=== PATIENT | male | born 1955 | race Caucasian/White ===

== ENCOUNTER 2017-09-11 07:15 | Outpatient (CLI) | payer OTHER ==
[2017-09-11 11:06] LABS: BASOPHILS # (AUTO) 0.1 10^3/uL (0.0-0.1); EOSINOPHILS # (AUTO) 0.8 10^3/uL (0.0-0.7); HGB - HEMOGLOBIN 15.3 g/dL (14.0-18.0); LYMPHOCYTES # (AUTO) 2.5 10^3/uL (1.5-3.5); LYMPHOCYTES % (AUTO) 29.9 %; MEAN CORPUSCULAR HEMOGLOBIN 30.3 pg (27.0-31.0); MEAN CORPUSCULAR HGB CONC 34.3 g/dL (32.0-36.0); MEAN CORPUSCULAR VOLUME 88.4 fL (80.0-94.0); MEAN PLATELET VOLUME 6.9 fL (7.4-11.4); MONOCYTES # (AUTO) 0.7 10^3/uL (0.0-1.0); MONOCYTES % (AUTO) 8.9 %; NEUTROPHILS # (AUTO) 4.1 10^3/uL (1.5-6.6); NEUTROPHILS % (AUTO) 50.2 %; PLT - PLATELET COUNT 333 10^3/uL (130-450); RED BLOOD COUNT 5.05 10^6/uL (4.70-6.10); RED CELL DISTRIBUTION WIDTH 13.4 % (12.0-15.0); WHITE BLOOD COUNT 8.2 x10^3/uL (4.8-10.8)
[2017-09-11 12:29] LABS: ALBUMIN 4.6 g/dL (3.2-5.5); ALBUMIN/GLOBULIN RATIO 1.4 (1.0-2.2); ALKALINE PHOSPHATASE 37 IU/L (42-121); ALT ALANINE AMINOTRANSFERASE 25 IU/L (10-60); AST ASPARTATE AMINOTRANSFERASE 21 IU/L (10-42); BILIRUBIN,TOTAL 0.6 mg/dL (0.2-1.0); BUN - BLOOD UREA NITROGEN 12 mg/dL (6-20); CALCIUM 9.2 mg/dL (8.5-10.3); CARBON DIOXIDE - CO2 28 mmol/L (21-32); CHLORIDE 99 mmol/L (101-111); CHOL/HDL RATIO 5.2 (<5.0); CHOLESTEROL 187 mg/dL; CREATININE 0.6 mg/dL (0.6-1.2); GFR - MDRD 136 (>89); GLUCOSE 104 mg/dL (70-100); HDL CHOLESTEROL 36 mg/dL; LDL CHOLESTEROL,CALCULATED 115 mg/dL; LDL/HDL RATIO 3.2 (<3.6); SODIUM 135 mmol/L (135-145); TOTAL PROTEIN 7.9 g/dL (6.7-8.2); VLDL CHOLESTEROL 36 mg/dL
== END 2017-09-11 07:16 | disposition home or self-care (01) ==
LOC: LAB.F 07:15
PROVIDERS: ATTEND Nurse Practitioner Family
DX: I10 Essential (primary) hypertension (principal); Z13.220 Encounter for screening for lipoid disorders
CPT/HCPCS: 36415; 80053; 80061; 83721; 84443; 85025

== ENCOUNTER 2018-06-10 16:24 | Outpatient (CLI) | payer MEDICARE, OTHER ==
--- NOTE | 2018-06-11 08:17 | XRAY Report ---
Reason: PNEUMONIA Procedure Date: 06/10/2018 Accession Number: [id number] / [id number] Procedure: XR - Chest 2 View X-Ray CPT Code: 82676 FULL RESULT: EXAM: CHEST RADIOGRAPHY EXAM DATE: 06/10/2018 04:51 PM. CLINICAL HISTORY: PNEUMONIA follow-up. COMPARISON: 03/29/2016 and 08/29/2015 TECHNIQUE: 2 views. FINDINGS: Lungs/Pleura: No focal opacities evident. No pleural effusion. No pneumothorax. Normal volumes. Mediastinum: Heart and mediastinal contours are unremarkable. Other: Degenerative change in the spine. IMPRESSION: Negative 2-view chest radiography for acute findings or significant interval change since 2015. RADIA
== END 2018-06-10 16:25 | disposition home or self-care (01) ==
LOC: DI 16:24
PROVIDERS: ATTEND Nurse Practitioner Family
DX: J18.9 Pneumonia, unspecified organism (principal)
CPT/HCPCS: 71046

== ENCOUNTER 2018-09-19 07:47 | Outpatient (CLI) | payer MEDICARE, OTHER ==
[2018-09-19 10:35] LABS: BASOPHILS % (AUTO) 2.2 %; EOSINOPHILS % (AUTO) 20.9 %; HGB - HEMOGLOBIN 15.3 g/dL (14.0-18.0); LYMPHOCYTES % (AUTO) 30.6 %; MEAN CORPUSCULAR HEMOGLOBIN 30.1 pg (27.0-31.0); MEAN CORPUSCULAR HGB CONC 33.9 g/dL (32.0-36.0); MEAN CORPUSCULAR VOLUME 88.7 fL (80.0-94.0); MEAN PLATELET VOLUME 7.2 fL (7.4-11.4); MONOCYTES % (AUTO) 7.9 %; NEUTROPHILS % (AUTO) 38.4 %; PLT - PLATELET COUNT 299 10^3/uL (130-450); RED BLOOD COUNT 5.09 10^6/uL (4.70-6.10); RED CELL DISTRIBUTION WIDTH 13.8 % (12.0-15.0); WHITE BLOOD COUNT 7.2 x10^3/uL (4.8-10.8)
[2018-09-19 10:42] LABS: ABNORMAL LYMPHS % (MANUAL) 0 %; BAND NEUTROPHILS % (MANUAL) 0 %
[2018-09-19 10:43] LABS: CALCIUM 9.1 mg/dL (8.5-10.3); CREATININE 0.8 mg/dL (0.6-1.2)
[2018-09-19 10:59] LABS: INR 1.1 (0.8-1.2); PT - PROTHROMBIN TIME 12.2 secs (9.9-12.6)
[2018-09-19 11:07] LABS: PARTIAL THROMBOPLASTIN TIME 31.8 secs (24.9-33.3)
[2018-09-19 11:21] LABS: BASOPHILS # (MANUAL) 0.2 10^3/uL (0-0.1); BASOPHILS % (MANUAL) 3 %; EOSINOPHILS # (MANUAL) 2.2 10^3/uL (0-0.7); LYMPHOCYTES # (MANUAL) 2.2 10^3/uL (1.5-3.5); LYMPHOCYTES % (MANUAL) 21 %; MONOCYTES # (MANUAL) 0.4 10^3/uL (0.0-1.0); NEUTROPHILS # (MANUAL) 2.2 10^3/uL (1.5-6.6); NEUTROPHILS % (MANUAL) 31 %
[2018-09-19 11:22] LABS: DIFFERENTIAL COMMENT MANUAL DIFFERENTIAL
== END 2018-09-19 07:48 | disposition home or self-care (01) ==
LOC: LAB.F 07:47
PROVIDERS: ATTEND Otolaryngology
DX: J32.4 Chronic pansinusitis (principal)
CPT/HCPCS: 36415; 80048; 85025; 85610; 85730

== ENCOUNTER 2020-03-15 08:33 | Outpatient (CLI) | payer MEDICARE ==
[2020-03-15 15:28] LABS: CALCIUM 8.9 mg/dL (8.5-10.3); CREATININE 0.8 mg/dL (0.6-1.2)
== END 2020-03-15 08:34 | disposition home or self-care (01) ==
LOC: LAB.S 08:33
PROVIDERS: ATTEND Internal Medicine
DX: I10 Essential (primary) hypertension (principal)
CPT/HCPCS: 36415; 80048

== ENCOUNTER 2021-08-31 09:40 | Outpatient (CLI) | payer MEDICARE, MEDICAID ==
[2021-08-31 10:20] LABS: BASOPHILS # (AUTO) 0.1 10^3/uL (0.0-0.1); BASOPHILS % (AUTO) 0.9 %; EOSINOPHILS # (AUTO) 0.8 10^3/uL (0.0-0.7); EOSINOPHILS % (AUTO) 11.8 %; HCT - HEMATOCRIT 45.6 % (42.0-52.0); HGB - HEMOGLOBIN 15.4 g/dL (14.0-18.0); LYMPHOCYTES # (AUTO) 2.5 10^3/uL (1.5-3.5); LYMPHOCYTES % (AUTO) 35.8 %; MEAN CORPUSCULAR HEMOGLOBIN 29.6 pg (27.0-31.0); MEAN CORPUSCULAR HGB CONC 33.8 g/dL (32.0-36.0); MEAN CORPUSCULAR VOLUME 87.7 fL (80.0-94.0); MEAN PLATELET VOLUME 8.5 fL (7.4-11.4); MONOCYTES # (AUTO) 0.7 10^3/uL (0.0-1.0); MONOCYTES % (AUTO) 9.3 %; NEUTROPHILS # (AUTO) 2.9 10^3/uL (1.5-6.6); NEUTROPHILS % (AUTO) 41.9 %; PLT - PLATELET COUNT 303 10^3/uL (130-450); RED CELL DISTRIBUTION WIDTH 13.9 % (12.0-15.0)
[2021-08-31 10:31] LABS: ALBUMIN/GLOBULIN RATIO 1.2 (1.0-2.2); ALKALINE PHOSPHATASE 41 IU/L (42-121); ALT ALANINE AMINOTRANSFERASE 33 IU/L (10-60); AST ASPARTATE AMINOTRANSFERASE 25 IU/L (10-42); BILIRUBIN,TOTAL 0.8 mg/dL (0.2-1.0); BUN - BLOOD UREA NITROGEN 15 mg/dL (6-20); CALCIUM 9.1 mg/dL (8.5-10.3); CARBON DIOXIDE - CO2 26 mmol/L (21-32); CHLORIDE 100 mmol/L (101-111); CHOL/HDL RATIO 4.7 (<5.0); CHOLESTEROL 185 mg/dL; CREATININE 0.7 mg/dL (0.6-1.2); GFR - MDRD 112 (>89); GLUCOSE 122 mg/dL (70-100); HDL CHOLESTEROL 39 mg/dL; LDL CHOLESTEROL,CALCULATED 119 mg/dL; LDL/HDL RATIO 3.1 (<3.6); POTASSIUM 4.3 mmol/L (3.5-5.0); SODIUM 134 mmol/L (135-145); TOTAL PROTEIN 7.3 g/dL (6.7-8.2); TRIGLYCERIDES 136 mg/dL; VLDL CHOLESTEROL 27 mg/dL
--- NOTE | 2021-08-31 17:04 | XRAY Report ---
PROCEDURE: Knee 4 View RT INDICATIONS: RT KNEE PX TECHNIQUE: 4 views of the right knee(s) were acquired. COMPARISON: None. FINDINGS: Bones: No fractures or dislocations. Moderate to severe tricompartmental osteoarthritis is seen most prominent in medial femoral tibial compartment. No suspicious bony lesions. Soft tissues: Moderate suprapatellar joint effusion is seen. No suspicious soft tissue calcification s. IMPRESSION: Moderate to severe tricompartmental osteoarthritis most prominent in medial femoral tibi al compartment. No acute fracture or dislocation. Moderate joint effusion. Reviewed by: Niraj Tucker MD on 08/31/2021 5:03 PM PST Approved by: Niraj Tucker MD on 08/31/2021 5:03 PM PST Station ID: [id number]
== END 2021-08-31 09:41 | disposition home or self-care (01) ==
LOC: DI 09:40 → LAB 09:41
PROVIDERS: ATTEND Internal Medicine
DX: I10 Essential (primary) hypertension (principal); M17.11 Unilateral primary osteoarthritis, right knee; M25.461 Effusion, right knee
CPT/HCPCS: 36415; 80053; 80061; 83036; 83721; 85025

== ENCOUNTER 2022-12-09 10:33 | Emergency (ER) | payer MEDICARE, MEDICAID ==
--- NOTE | 2022-12-09 11:47 | ED Physician Documentation ---
PD HPI MALE - Stated complaint Stated Complaint: MALE - Chief complaint Chief Complaint: General - History obtained from History obtained from: Patient - History of Present Illness Timing - onset: How many weeks ago (3) Timing - duration: Weeks (3) Timing - details: Gradual onset, Still present, Waxing and waning Associated symptoms: Other (has had pain right inguinal area intermittent for 3 weeks, worse with use/sactivity such as walking up/down steps, and carrying a load/objects. No change with voiding/stooling. He thiks he feels a lump in area periodically when hurting.) PD HPI MALE CONTRIB FACTORS: Not sexually active Similar symptoms before: Has not had sx before Recently seen: Not recently seen Review of Systems Constitutional: denies: Fever, Chills Cardiac: denies: Chest pain / pressure Respiratory: denies: Dyspnea, Cough GI: denies: Abdominal Pain : denies: Dysuria, Frequency, Discharge, Testicular pain Skin: denies: Rash, Lesions PD PAST MEDICAL HISTORY - Past Medical History Cardiovascular: Hypertension Respiratory: Asthma Endocrine/Autoimmune: None GI: None : None HEENT: None Psych: None Musculoskeletal: None Derm: None - Past Surgical History Past Surgical History: No Ortho: Other - Present Medications Home Medications: Ambulatory Orders Medication Instructions Recorded Confirmed Amlodipine Besylate 1 tab ORAL DAILY 07/26/15 07/26/15 Aspirin [Adult Low Dose Aspirin EC] 1 tab ORAL DAILY 07/26/15 07/26/15 Beclomethasone 80 Mcg [Qvar 80] 1 inh INH BID 07/26/15 07/26/15 Chlorthalidone 0.5 tab ORAL DAILY 07/26/15 07/26/15 Albuterol Sulfate 08/29/15 Loratadine [Claritin] 08/29/15 hydroCHLOROthiazide 25 mg PO DAILY 03/29/16 03/29/16 [Hydrochlorothiazide] HYDROcod/ACETAM 5/325 [[place] 5/325] 1 ea PO Q6H PRN #14 tablet 12/09/22 Meloxicam [Mobic] 7.5 mg PO BID 10 Days #20 tablet 12/09/22 - Allergies Allergies/Adverse Reactions: Allergies Allergy/AdvReac Type Severity Reaction Status Date / Time No Known Drug Allergies Allergy Verified 12/09/22 10:47 - Social History Does the pt smoke?: No Smoking Status: Never smoker - POLST Patient has POLST: No PD ED PE NORMAL - Vitals Vital signs reviewed: Yes - General General: Alert and oriented X 3, No acute distress, Well developed/nourished - Abdomen Abdomen: Normal bowel sounds, Soft, Non distended, No organomegaly, Other (he has some [id number] in right femoral crease at inguinal canal area, but not tender medial aspect such as canal outlet. No tender at scrotum. No obvious hernia scrotal /inguinal medial. Mild pain with hip flexion against resistance but not much. No adenopathy. Abdomen itself it not tender. ) Results - Vitals Vitals: Vital Signs - 24 hr 12/09/22 12/09/22 10:42 12:30 Temperature 36.4 C L 36.5 C Heart Rate 79 80 Respiratory 16 16 Rate Blood Pressure 123/69 122/72 O2 Saturation 99 100 Oxygen O2 Source Room air PD Medical Decision Making - ED course Complexity details: reviewed results (kdiscussion with patient of treating potentil inguinal ligament/canal strain or psoas strain versus testing here with CT/labs. He defers testing for now. ), considered differential (right inguinal pain with activity for 3 weeks. No meds taken. Works as aircraft electrician. I do not feel an obvious hernia on exam with abd tightening. Consider inguinal canal strain, though. Also consider flexor muscle strain (psoas). I do not get sense of intrabdominal process per se. ), d/w patient Departure - Departure Disposition: 01 Home, Self Care Clinical Impression: Right inguinal pain Condition: Stable Record reviewed to determine appropriate education?: Yes Instructions: ED Strain Groin Follow-Up: Maryann Avila ARNP [Primary Care Provider] - Prescriptions: Meloxicam [Mobic] 7.5 mg PO BID 10 Days #20 tablet HYDROcod/ACETAM 5/325 [[place] 5/325] 1 ea PO Q6H PRN #14 tablet PRN Reason: Pain Comments: The character of this sounds likely to be a strain of the inguinal canal l igaments or possibly the hip flexor muscles such as the psoas (muscle strain). However the location of it is little bit more into the lower abdomen/pelvis area. We can treat it with anti-inflammatories and add other pain medicine short-term along with modified activity over the next several days to week. If it gets better then no further treatment necessarily needed. If the pain continues or becomes a bigger area or if you develop other symptoms such as general belly pain, diarrhea or loose stools, nausea, fever or any other different symptoms, then return to the ER for further evaluation such as CT scan or labs. At this point it can be reasonable to treat with anti-inflammatories and pain medicine and see if it improves. I sent new prescriptions to [facility] in [place]. Try to minimize lifting bending prolonged walking and standing etc. over the next several days to week. I am prescribing a short course of narcotic pain medication for you. These are potentially dangerous and addictive medications that should be used carefully. These medications may constipate you. Take an [id number] stool softener such as docusate twice daily with plenty of water while taking these medications. If you go 24 hours without a bowel movement, take [id number] MiraLAX, per package instructions. Do not drink or drive while taking these medications. If you received narcotic or sedating medications while in the emergency department do not drive for 24 hours. Store this medication in a safe, secure place and out of reach of children. It is a violation of federal law to give or sell this medication to another person or to use in a manner other than prescribed. The ED will not refill narcotic prescriptions, including prescriptions lost or stolen. You can dispose of unwanted medications at the [facility]'s office or at several pharmacies such as [facility]. Discharge Date/Time: 12/09/22 12:30
[2022-12-09 12:32] VITALS: BP 122/72
== END 2022-12-09 12:30 | disposition home or self-care (01) ==
LOC: ED 10:33
DX: R10.31 Right lower quadrant pain (principal); I10 Essential (primary) hypertension
CPT/HCPCS: 99282; 99283

== ENCOUNTER 2023-03-13 10:01 | Outpatient (CLI) | payer MEDICARE, MEDICAID ==
[2023-03-13 14:25] LABS: BASOPHILS # (AUTO) 0.1 10^3/uL (0.0-0.1); BASOPHILS % (AUTO) 1.1 %; EOSINOPHILS # (AUTO) 0.1 10^3/uL (0.0-0.7); EOSINOPHILS % (AUTO) 1.9 %; HGB - HEMOGLOBIN 15.8 g/dL (14.0-18.0); LYMPHOCYTES # (AUTO) 2.4 10^3/uL (1.5-3.5); LYMPHOCYTES % (AUTO) 38.3 %; MEAN CORPUSCULAR HEMOGLOBIN 30.5 pg (27.0-31.0); MEAN CORPUSCULAR HGB CONC 33.6 g/dL (32.0-36.0); MEAN CORPUSCULAR VOLUME 90.7 fL (80.0-94.0); MEAN PLATELET VOLUME 8.6 fL (7.4-11.4); MONOCYTES # (AUTO) 0.7 10^3/uL (0.0-1.0); MONOCYTES % (AUTO) 10.3 %; NEUTROPHILS % (AUTO) 48.2 %; PLT - PLATELET COUNT 304 10^3/uL (130-450); RED BLOOD COUNT 5.18 10^6/uL (4.70-6.10); RED CELL DISTRIBUTION WIDTH 13.7 % (12.0-15.0); WHITE BLOOD COUNT 6.3 x10^3/uL (4.8-10.8)
[2023-03-13 14:49] LABS: ALBUMIN 4.5 g/dL (3.2-5.5); ALBUMIN/GLOBULIN RATIO 1.5 (1.0-2.2); ALKALINE PHOSPHATASE 46 IU/L (42-121); ALT ALANINE AMINOTRANSFERASE 16 IU/L (10-60); AST ASPARTATE AMINOTRANSFERASE 15 IU/L (10-42); BILIRUBIN,TOTAL 0.7 mg/dL (0.2-1.0); BUN - BLOOD UREA NITROGEN 14 mg/dL (6-20); CALCIUM 9.6 mg/dL (8.5-10.3); CARBON DIOXIDE - CO2 28 mmol/L (21-32); CHLORIDE 102 mmol/L (101-111); CHOL/HDL RATIO 4.1 (<5.0); CHOLESTEROL 178 mg/dL; CREATININE 0.7 mg/dL (0.6-1.3); GFR - MDRD 111 (>89); GLUCOSE 105 mg/dL (74-104); HDL CHOLESTEROL 43 mg/dL; LDL CHOLESTEROL,CALCULATED 111 mg/dL; LDL/HDL RATIO 2.6 (<3.6); POTASSIUM 4.1 mmol/L (3.5-4.5); SODIUM 136 mmol/L (135-145); TOTAL PROTEIN 7.5 g/dL (6.4-8.9); TRIGLYCERIDES 119 mg/dL (48-352); VLDL CHOLESTEROL 24 mg/dL
== END 2023-03-13 10:02 | disposition home or self-care (01) ==
LOC: LAB.S 10:01
PROVIDERS: ATTEND Registered Nurse
DX: Z79.899 Other long term (current) drug therapy (principal); Z13.220 Encounter for screening for lipoid disorders; Z12.5 Encounter for screening for malignant neoplasm of prostate
CPT/HCPCS: 36415; 80053; 80061; 85025; G0103; 83721; 84153

== ENCOUNTER 2023-10-13 07:25 | Emergency (ER) | payer MEDICARE, MEDICAID ==
--- NOTE | 2023-10-13 07:56 | ED Physician Documentation ---
PD HPI CHEST PAIN - Stated complaint Stated Complaint: CHEST PX - Chief complaint Chief Complaint: Cardiac - History obtained from History obtained from: Patient - History of Present Illness Timing - onset: How many hours ago (6), Last night Timing - duration: Hours Timing - details: Abrupt onset, Still present (lessened to mild this morning but still present.) Quality: Aching, Pain Location: Left chest (in pectoral and armpit area.) Radiation: No: Jaw, Back, Abdominal Improved by: Rest Worsened by: Inspiration, Movement, Palpation Associated symptoms: No: Shortness of air, Nausea, Vomiting, Feeling faint / dizzy Similar symptoms before: Has not had sx before Review of Systems Constitutional: denies: Fever, Chills Nose: denies: Rhinorrhea / runny nose, Congestion Throat: denies: Sore throat Respiratory: denies: Cough GI: denies: Abdominal Pain, Nausea, Vomiting PD PAST MEDICAL HISTORY - Past Medical History Past Medical History: Yes Cardiovascular: Hypertension Respiratory: Asthma Neuro: None Endocrine/Autoimmune: None GI: Other : None HEENT: None Psych: None Musculoskeletal: None Derm: None - Past Surgical History Past Surgical History: No Ortho: Knee replacement, Amputation - Present Medications Home Medications: Ambulatory Orders Medication Instructions Recorded Confirmed hydroCHLOROthiazide 25 mg PO DAILY 03/29/16 10/13/23 [Hydrochlorothiazide] Albuterol Sulf [Ventolin Hfa 1 - 2 puffs INH Q4HR PRN 10/13/23 10/13/23 Inhaler] Amlodipine Besylate [Norvasc] 5 mg PO BID 10/13/23 10/13/23 Cetirizine [ZyrTEC] 10 mg PO DAILY 10/13/23 10/13/23 Dupilumab [Dupixent Pen] 300 mg SQ Q14D 10/13/23 10/13/23 Montelukast [Singulair] 5 mg PO QPM 10/13/23 10/13/23 - Allergies Allergies/Adverse Reactions: Allergies Allergy/AdvReac Type Severity Reaction Status Date / Time No Known Drug Allergies Allergy Verified 10/13/23 07:45 - Social History Does the pt smoke?: No Smoking Status: Former smoker Does the pt drink ETOH?: No Does the pt have substance abuse?: No - Immunizations Immunizations are current?: Yes - POLST Patient has POLST: No PD ED PE NORMAL - Vitals Vital signs reviewed: Yes - General General: Alert and oriented X 3, Well developed/nourished - HEENT HEENT: Pharynx benign - Neck Neck: Supple, no meningeal sign, No adenopathy - Cardiac Cardiac: RRR, No murmur - Respiratory Respiratory: No respiratory distress, Clear bilaterally, Other (distinct chestwall tednerness left parasternal and toward left pectoral area. Pain worse with movement of shoulder.) - Abdomen Abdomen: Non tender Results - Vitals Vitals: Oxygen O2 Source Room air - EKG (time done) 07:40 EKG releavant findings:: EKG personally interpreted by author of this note. Relevant findings are: Rate: Rate (enter#) (72) Rhythm: NSR [place]: Normal Intervals: Normal MI QRS: Normal Ischemia: ST elevation c/w repol Compare to prior EKG: Old EKG unavailable - Labs Labs: Laboratory Tests 10/13/23 10/13/23 10/13/23 07:55 07:55 07:55 WBC 10.9 H RBC 5.06 Hgb 15.4 Hct 44.1 MCV 87.2 MCH 30.4 MCHC 34.9 RDW 13.7 Plt Count 247 MPV 8.3 Neut # (Auto) 8.4 H Lymph # (Auto) 1.3 L [place] # (Auto) 1.0 Eos # (Auto) 0.1 Baso # (Auto) 0.1 Absolute Nucleated RBC 0.00 Nucleated RBC % 0.0 Sodium 136 Potassium 4.1 Chloride 105 Carbon Dioxide 25 Anion Gap 6.0 BUN 13 Creatinine 0.8 Estimated GFR (MDRD) 96 Glucose 125 H Calcium 9.5 Magnesium 1.6 L Total Bilirubin 0.8 AST 13 ALT 15 Alkaline Phosphatase 44 Troponin I High Sens 4.5 C-Reactive Protein < 0.5 B-Natriuretic Peptide Total Protein 7.0 Albumin 4.3 Globulin 2.7 Albumin/Globulin Ratio 1.6 Lipase 13 10/13/23 07:55 WBC RBC Hgb Hct MCV MCH MCHC RDW Plt Count MPV Neut # (Auto) Lymph # (Auto) [place] # (Auto) Eos # (Auto) Baso # (Auto) Absolute Nucleated RBC Nucleated RBC % Sodium Potassium Chloride Carbon Dioxide Anion Gap BUN Creatinine Estimated GFR (MDRD) Glucose Calcium Magnesium Total Bilirubin AST ALT Alkaline Phosphatase Troponin I High Sens C-Reactive Protein B-Natriuretic Peptide 38 Total Protein Albumin Globulin Albumin/Globulin Ratio Lipase - Rads (name of study) chest xray Relevant Findings:: Prelim report reviewed, EMP independent interpretation of test (no acute process) PD Medical Decision Making - ED course Complexity details: reviewed results (CXR without acute process. ECG showing diffuse upsloping ST pattern more c/w inflammatory or early repol pattern rather than ischemic. Trop is negative, which is conclusive against [place] after 6 or more hours of pain. CXR clear. CRp negative and no recent URI/etc so less likely pericarditis. ), considered differential (the character of the pain seems msuculoskeletal, which is of course not accurate enough for diagnosis without excluding more serious causes. Will get ECG, labs, CXR. No noted injury, cough, etc to account for muscular pain.), d/w patient Departure - Departure Disposition: Home, Self Care Clinical Impression: Chest pain at rest, Chest wall pain, ECG abnormality Condition: Stable Record reviewed to determine appropriate education?: Yes Instructions: ED Chest Pain NonCardiac Comments: Your EKG shows a normal variation called early repolarization. There is no signs reflecting acute heart injury. In particular no signs of heart attack, heart failure, heart inflammation. Your lungs appear normal as well without any signs of fluid collected, pneumonia, collapsed lung etc. Your blood tests are showing normal markers of the heart called troponin and BNP and no signs of a significant inflammatory immune process with a normal test called CRP. Upper abdominal markers of for pancreas and liver are normal as well. Essentially no signs of bad things happening to account for the pain. It does sound most likely musculoskeletal in character. I would suggest an anti-inflammatory such as ibuprofen or naproxen 2-3 vfuo-caj-dkobvfl tablets twice daily with food for the next week or so. Add Tylenol 500 to 650 mg every 4-6 hours if needed. I would anticipate a decreasing of your symptoms over the next few days and resolution over 3 to 5 days. Recheck if not better in that timeframe. Recheck or return if worsening with regard to trouble breathing, increased pain, lightheadedness, exertional chest pain or other concerns. If you develop some viral type illness with aches and a cough or such, than that could make sense as some chest inflammation may be early harbinger of that. Forms: PCP List Discharge Date/Time: 10/13/23 09:25
--- NOTE | 2023-10-13 08:06 | XRAY Report ---
PROCEDURE: Chest 1V INDICATIONS: Chest pain TECHNIQUE: One view of the chest was acquired. COMPARISON: Chest radiograph 06/10/2018. FINDINGS: Surgical changes and devices: None. Lungs and pleura: No pleural effusions or pneumothorax. Lungs are clear. Mediastinum: Mediastinal contours appear normal. Heart size is normal. Bones and chest wall: No suspicious bony lesions. Overlying soft tissues appear unremarkable. IMPRESSION: No acute cardiopulmonary process. Reviewed by: Rosy Coleman MD, PhD on 10/13/2023 8:04 AM PDT Approved by: Rosy Coleman MD, PhD on 10/13/2023 8:04 AM PDT Station ID: [id number]
[2023-10-13 08:08] LABS: BASOPHILS # (AUTO) 0.1 10^3/uL (0.0-0.1); BASOPHILS % (AUTO) 0.5 %; EOSINOPHILS # (AUTO) 0.1 10^3/uL (0.0-0.7); EOSINOPHILS % (AUTO) 0.7 %; HCT - HEMATOCRIT 44.1 % (42.0-52.0); HGB - HEMOGLOBIN 15.4 g/dL (14.0-18.0); LYMPHOCYTES # (AUTO) 1.3 10^3/uL (1.5-3.5); LYMPHOCYTES % (AUTO) 12.2 %; MEAN CORPUSCULAR HEMOGLOBIN 30.4 pg (27.0-31.0); MEAN CORPUSCULAR HGB CONC 34.9 g/dL (32.0-36.0); MEAN CORPUSCULAR VOLUME 87.2 fL (80.0-94.0); MEAN PLATELET VOLUME 8.3 fL (7.4-11.4); MONOCYTES % (AUTO) 9.1 %; NEUTROPHILS # (AUTO) 8.4 10^3/uL (1.5-6.6); NEUTROPHILS % (AUTO) 77.2 %; PLT - PLATELET COUNT 247 10^3/uL (130-450); RED BLOOD COUNT 5.06 10^6/uL (4.70-6.10); RED CELL DISTRIBUTION WIDTH 13.7 % (12.0-15.0); WHITE BLOOD COUNT 10.9 x10^3/uL (4.8-10.8)
[2023-10-13 08:18] VITALS: O2SAT 97
[2023-10-13] MEDS: MAG HYDROX/AL HYDROX/SIMETH 30 ML UDC PO STA (08:20)
[2023-10-13 08:26] LABS: MAGNESIUM 1.6 mg/dL (1.7-2.3); TROPONIN I HIGH SENSITIVITY 4.5 ng/L (2.3-19.7)
[2023-10-13 08:31] LABS: ALBUMIN 4.3 g/dL (3.2-5.5); ALBUMIN/GLOBULIN RATIO 1.6 (1.0-2.2); BILIRUBIN,TOTAL 0.8 mg/dL (0.2-1.0); CALCIUM 9.5 mg/dL (8.5-10.3); CREATININE 0.8 mg/dL (0.6-1.3); POTASSIUM 4.1 mmol/L (3.5-4.5)
[2023-10-13] MEDS: KETOROLAC 15 MG/ML VIAL IVP STA (09:17)
[2023-10-13 09:25] VITALS: BP 118/74
== END 2023-10-13 09:25 | disposition home or self-care (01) ==
LOC: ED 07:25
DX: R07.9 Chest pain, unspecified (principal); R07.89 Other chest pain; R94.31 Abnormal electrocardiogram [ECG] [EKG]; Z87.891 Personal history of nicotine dependence
CPT/HCPCS: 36415; 71045; 80053; 83690; 83735; 83880; 84484; 85025; 86140; 93005; 96374; 99284; A9270

== ENCOUNTER 2024-03-17 11:07 | Outpatient (CLI) | payer MEDICARE, MEDICAID ==
[2024-03-17 15:17] LABS: BASOPHILS # (AUTO) 0.1 10^3/uL (0.0-0.1); BASOPHILS % (AUTO) 0.8 %; EOSINOPHILS # (AUTO) 0.2 10^3/uL (0.0-0.7); HCT - HEMATOCRIT 44.7 % (42.0-52.0); LYMPHOCYTES # (AUTO) 2.1 10^3/uL (1.5-3.5); LYMPHOCYTES % (AUTO) 26.3 %; MEAN CORPUSCULAR HEMOGLOBIN 30.1 pg (27.0-31.0); MEAN CORPUSCULAR HGB CONC 33.6 g/dL (32.0-36.0); MEAN CORPUSCULAR VOLUME 89.8 fL (80.0-94.0); MEAN PLATELET VOLUME 8.6 fL (7.4-11.4); MONOCYTES # (AUTO) 0.6 10^3/uL (0.0-1.0); MONOCYTES % (AUTO) 6.9 %; NEUTROPHILS # (AUTO) 5.1 10^3/uL (1.5-6.6); NEUTROPHILS % (AUTO) 63.7 %; PLT - PLATELET COUNT 348 10^3/uL (130-450); RED BLOOD COUNT 4.98 10^6/uL (4.70-6.10)
[2024-03-17 15:52] LABS: ALBUMIN 4.2 g/dL (3.2-5.5); ALBUMIN/GLOBULIN RATIO 1.6 (1.0-2.2); ALKALINE PHOSPHATASE 43 IU/L (42-121); ALT ALANINE AMINOTRANSFERASE 20 IU/L (10-60); AST ASPARTATE AMINOTRANSFERASE 18 IU/L (10-42); BILIRUBIN,TOTAL 0.4 mg/dL (0.2-1.0); BUN - BLOOD UREA NITROGEN 12 mg/dL (6-20); CALCIUM 9.1 mg/dL (8.5-10.3); CARBON DIOXIDE - CO2 27 mmol/L (21-32); CHLORIDE 102 mmol/L (101-111); CHOL/HDL RATIO 3.3 (<5.0); CHOLESTEROL 124 mg/dL; CREATININE 0.7 mg/dL (0.6-1.3); GFR - MDRD 111 (>89); GLUCOSE 105 mg/dL (74-104); HDL CHOLESTEROL 38 mg/dL; LDL CHOLESTEROL,CALCULATED 75 mg/dL; SODIUM 136 mmol/L (135-145); TOTAL PROTEIN 6.9 g/dL (6.4-8.9); TRIGLYCERIDES 57 mg/dL; VLDL CHOLESTEROL 11 mg/dL
[2024-03-17 16:52] LABS: THYROID STIMULATING HORMONE 1.29 uIU/mL (0.34-5.60)
== END 2024-03-17 11:08 | disposition home or self-care (01) ==
LOC: LAB.S 11:07
PROVIDERS: ATTEND Registered Nurse
DX: Z13.228 Encounter for screening for other metabolic disorders (principal); Z13.220 Encounter for screening for lipoid disorders; Z13.29 Encounter for screening for other suspected endocrine disorder; Z13.0 Encounter for screening for diseases of the blood and blood-forming organs and certain disorders involving the immune mechanism; I10 Essential (primary) hypertension
CPT/HCPCS: 36415; 80053; 80061; 83721; 84443; 85025